=== PATIENT | male | born 1965 | race Caucasian/White ===

== ENCOUNTER 2020-11-25 06:28 | Emergency (ER) | payer MEDICAID ==
[~2020-11-25] VITALS: Ht 170.2 cm; Wt 73.0 kg
[2020-11-25] MEDS ORDERED: IBUPROFEN 600MG TABLET PO ONE (07:00)
[2020-11-25 07:07] VITALS: BP 144/102
[2020-11-25] MEDS ORDERED: LIDOCAINE HCL 1% 20ML VIAL (Pyxis) INJ INFIL ONE (10:15)
[2020-11-25] MEDS ORDERED: CEPH500C2 MT (11:09)
[2020-11-25] MEDS ORDERED: IBUP-2029 MT (11:09)
[2020-11-25] MEDS ORDERED: CEPHALEXIN 250MG CAPSULE PO ONE (11:15)
== END 2020-11-25 11:45 | disposition home or self-care (01) ==
LOC: ER 06:36
DX: L03.012 Cellulitis of left finger (principal)
CPT/HCPCS: 73130; 99283; J3490; Z7610

== ENCOUNTER 2021-08-08 19:49 | Emergency (ER) | payer MEDICAID ==
[~2021-08-08] VITALS: Ht 170.2 cm; Wt 73.5 kg
[~2021-08-08 19:49] MED LIST: CEPH500C2 MT; IBUP-2029 MT
[2021-08-08] MEDS ORDERED: IBUP-2029 MT (21:26)
[2021-08-08] MEDS ORDERED: AMOX-424 MT (21:26)
[2021-08-08] MEDS ORDERED: IBUPROFEN 600MG TABLET PO ONE (21:30)
[2021-08-08] MEDS ORDERED: AMOXICILLIN/POTASSIUM CLAVULANATE 875/125MG TAB PO ONE (21:30)
[2021-08-08 21:51] VITALS: BP 153/98
== END 2021-08-08 22:45 | disposition home or self-care (01) ==
LOC: ER 19:49
DX: L03.012 Cellulitis of left finger (principal); L02.212 Cutaneous abscess of back [any part, except buttock and flank]
CPT/HCPCS: 99283

== ENCOUNTER 2024-02-03 14:10 | Emergency (ER) | payer MEDICAID ==
[~2024-02-03] VITALS: Ht 170.2 cm; Wt 59.0 kg
[~2024-02-03 14:10] MED LIST changes: +AMOX-424 MT
[2024-02-03 14:53] VITALS: BP 135/89; PULSE 72; RESP 16; TEMP 98.4; O2SAT 100
[2024-02-03] MEDS ORDERED: DOXYCYCLINE HYCLATE 100MG CAPSULE PO ONE (17:00)
[2024-02-03] MEDS ORDERED: CEFTRIAXONE SODIUM 500MG VIAL IM ONE (17:00)
[2024-02-03 18:17] LABS: BASOPHILS % 0.8 % (0.0-2.0); EOSINOPHILS % 1.1 % (0.0-5.0); HEMATOCRIT. 35.8 % (42.0-52.0); HEMOGLOBIN. 12.2 g/dL (14.0-18.0); LYMPHOCYTES % 36.7 % (20.0-50.0); MEAN CORPUSCULAR HEMOGLOBIN 32.5 pg (28.0-32.0); MEAN CORPUSCULAR VOLUME 95.6 fL (80.0-94.0); MEAN PLATELET VOLUME 6.9 fl (7.4-10.4); MONOCYTES % 7.7 % (2.0-8.0); NEUTROPHILS % 53.7 % (40.0-76.0); PLATELET 224 x1000/uL (130-400); RED BLOOD CELL COUNT 3.74 mill/uL (4.7-6.1); RED CELL DISTRIBUTION WIDTH 13.7 % (11.6-14.6); WHITE BLOOD COUNT 4.1 x1000/uL (4.5-11.0)
[2024-02-03 18:29] LABS: CHLORIDE 104 mEq/L (98-107); POTASSIUM 3.5 mEq/L (3.5-5.1); SODIUM 139 mEq/L (136-145)
[2024-02-03 18:30] LABS: CALCIUM 9.3 mg/dL (8.7-10.4); CARBON DIOXIDE 29 mEq/L (21-32)
[2024-02-03 18:35] LABS: CREATININE 0.9 mg/dL (0.6-1.3); GLUCOSE 111 mg/dL (70-105); UREA NITROGEN BLOOD 17 mg/dL (9-23)
[2024-02-03] MEDS ORDERED: DOXY100C5 MT (19:15)
== END 2024-02-03 20:54 | disposition home or self-care (01) ==
LOC: ER 14:10
DX: M79.642 Pain in left hand (principal); Z11.3 Encounter for screening for infections with a predominantly sexual mode of transmission
CPT/HCPCS: 80048; 80320; 85025; 86592; 36415; 73130; 99284; J0696; G0480

== ENCOUNTER 2024-02-04 05:01 | Emergency (ER) | payer MEDICAID ==
[~2024-02-04 05:01] MED LIST changes: +DOXY100C5 MT
[2024-02-04 05:11] VITALS: PULSE 64; RESP 18; O2SAT 97
== END 2024-02-04 08:28 | disposition left against medical advice (07) ==
LOC: ER 05:09
DX: N50.89 Other specified disorders of the male genital organs (principal); Z53.21 Procedure and treatment not carried out due to patient leaving prior to being seen by health care provider

== ENCOUNTER 2024-04-22 23:43 | Emergency (ER) | payer MEDICAID ==
[~2024-04-22] VITALS: Ht 167.6 cm; Wt 63.3 kg
[2024-04-22 23:58] VITALS: BP 136/94; O2SAT 98
[2024-04-23 00:02] VITALS: PULSE 100; O2SAT 98
[2024-04-23] MEDS ORDERED: ACET-2708 MT (01:52)
[2024-04-23 02:00] VITALS: RESP 18
== END 2024-04-23 02:01 | disposition home or self-care (01) ==
LOC: ER 23:54
DX: M25.512 Pain in left shoulder (principal); I10 Essential (primary) hypertension; Z82.49 Family history of ischemic heart disease and other diseases of the circulatory system; Z79.899 Other long term (current) drug therapy
CPT/HCPCS: 73000; 73030; 99284; A4565